=== PATIENT | male | born 1960 | race Caucasian/White ===

== ENCOUNTER 2018-03-09 20:17 | Emergency (ER) | payer OTHER ==
--- NOTE | 2018-03-09 20:24 | EDPHY ---
H & P Stated Complaint: syncope Time Seen by Provider: 03/09/18 20:24 - Personal History Current Tetanus/Diphtheria Vaccine: Yes Current Tetanus Diphtheria and Acellular Pertussis (TDAP): Yes - Medical/Surgical History Hx Asthma: No Hx Chronic Respiratory Disease: No Hx Diabetes: No Hx Cardiac Disease: No Hx Renal Disease: No Hx Cirrhosis: No Hx Alcoholism: No Hx HIV/AIDS: No Hx Splenectomy or Spleen Trauma: No Other PMH: htn, als - Social History Smoking Status: Never smoked Constitutional: Initial Vital Signs Temperature (C) 36.9 C 03/09/18 20:20 Heart Rate 91 03/09/18 20:20 Respiratory Rate 18 03/09/18 20:20 Blood Pressure 102/70 03/09/18 20:20 O2 Sat (%) 94 03/09/18 20:20 O2 Delivery Mode Room Air Allergies/Adverse Reactions: Sulfa (Sulfonamide Antibiotics) Allergy (Verified 03/09/18 20:20) Home Medications: Medication Instructions Recorded Losartan Potassium 03/09/18 Medical Decision Making ED Course/Re-evaluation: CHIEF COMPLAINT: Syncope HISTORY OF PRESENT ILLNESS: The patient is a 57 y/o male with a history of ALS and hypertension arriving via EMS after a syncopal episode today. REVIEW OF SYSTEMS: A comprehensive 10 system review of systems is otherwise negative aside from elements mentioned in the history of present illness and medical decision making. PHYSICAL EXAM: HR, BP, O2 Sat, RR. Temp noted General Appearance: Alert, well hydrated, appropriate, and non-toxic appearing. Head: Atraumatic without scalp tenderness or obvious injury Eyes: Pupils equal, round, reactive to light and accommodation, EOMI, no trauma , no injection. Ears: Clear bilaterally, no perforation, normal landmarks Nose: Atraumatic, no rhinorrhea, clear. Throat: There is no erythema or exudates, no lesions, normal tonsils, mucus membranes moist. Neck: Supple, 2+ carotid upstroke, nontender, no lymphadenopathy. Respiratory: No retractions, no distress, no wheezes, and no accessory muscle use. Lungs are clear to auscultation bilaterally. Cardiovascular: Regular rate and rhythm, no murmurs, rubs, or gallops. Bilateral carotid, radial, dorsalis pedis, and posterior tibial pulses intact. Good capillary refill all extremities. Gastrointestinal: Abdomen is soft, nontender, non-distended, no masses, no rebound, no guarding, no peritoneal signs. Musculoskeletal: Normal active ROM of all extremities, atraumatic. Neurological: Alert, appropriate, and interactive. The patient has normal DTRs and non-focal cranial nerves, motor, sensory, and cerebellar exam. Skin: No rashes, good turgor, no nodules on palpation. Past medical history: Hypertension, ALS Past surgical history: Denies Family history: Denies Social history: Lives in [place] DIAGNOSTICS/PROCEDURES/CRITICAL CARE TIME: DIFFERENTIAL DIAGNOSIS: The differential diagnosis for the patient's syncope included but was not limited to vasovagal syncope, arrhythmia, dehydration, cardiogenic causes, neurogenic causes, and blood loss. MEDICAL DECISION MAKING: Departure - Departure Referrals: Patient,NotPresent [Primary Care Provider] - As per Instructions Report Scribed for: Luis Antonio Brock Report Scribed by: Ludivina Taylor Date of Report: 03/09/18 Time of Report: 20:28
--- NOTE | 2018-03-09 20:28 | EDPHY ---
HPI/HX/ROS/PE/MDM Narrative: CHIEF COMPLAINT: Syncopal episode HPI: The patient is a 57 y/o male with a history of recently-diagnosed ALS arriving with his via EMS after a syncopal episode while at dinner tonight. He and his flew in from [place] yesterday for vacation. His notes he developed cold symptoms two days ago before traveling here. While at dinner tonight he felt lightheaded "like my blood pressure was dropping and I needed to put my head down and I it came on faster than I expected." He then developed associated sensation of "stomach burning" then briefly lost consciousness. No seizure activity or subsequent confusion or incontinence. He did not suffer any trauma during this event. He vomited once and he currently feels fatigued. He denies chest pain or dyspnea at any point. His notes he had a Radicava infusion through his port last night. REVIEW OF SYSTEMS: A comprehensive 10 system review of systems is otherwise negative aside from elements mentioned in the history of present illness. PMH: ALS, port placed 2016. SOCIAL HISTORY: Visiting from [place], flew in yesterday. at bedside. 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 PHYSICAL EXAM: General:Patient is alert, in no acute distress. Pale. ENT:Eyes are normal to inspection. ENT inspection normal. Neck: Normal inspection. Full range of motion. Respiratory:No respiratory distress. Breath sounds normal bilaterally. Cardiovascular: Regular rate and rhythm. Strong peripheral pulses. Normal cap refill. Abdomen:The abdomen is nontender to palpation. There are no peritoneal signs. Back: Normal to inspection. No tenderness to palpation. Skin: Pale. No rash. Warm and dry. Extremities: Normal appearance. Full range of motion. Neuro: Oriented x3. Normal motor function. Normal sensory function. (Gab Hobson) ED Course: This is a 57 y/o male with ALS who is visiting from [place] who presents after a syncopal episode while out at dinner tonight. He is pale and fatigued- appearing, but otherwise has an unremarkable exam. Plan for IV, labs, EKG. 1L IV NS ordered. The 12 lead EKG was interpreted by myself. Sinus mechanism. See hard copy and/ or "tracemaster" electronic copy for interpretation. Patient care signed out to Dr. Brock at shift change pending labs and improvement in symptoms. (Gab Hobson) 2100: I assumed care of this patient from Dr. Hobson at shift change. 2204: Reassessed patient and discussed laboratory and imaging findings. His symptoms are consistent with dehydration and near-syncope. Return precautions provided; patient is comfortable with this plan. (Luis Antonio Brock) - Data Points Imaging Results: Imaging Impressions Chest X-Ray 03/09/18 20:33 Impression: 1. Mild prominent interstitial markings suspected at the lung bases. Consider interstitial infiltrate or interstitial dependent edema. Laboratory Results: Laboratory Results 03/09/18 20:15 03/09/18 20:15 03/09/18 03/09/18 03/09/18 20:29 20:15 20:15 WBC 12.25 10^3/uL H 10^3/uL (3.80-9.50) RBC 4.45 10^6/uL 10^6/uL (4.40-6.38) Hgb 14.4 g/dL g/dL (13.7-17.5) Hct 41.2 % % (40.0-51.0) MCV 92.6 fL fL (81.5-99.8) MCH 32.4 pg pg (27.9-34.1) MCHC 35.0 g/dL g/dL (32.4-36.7) RDW 12.1 % % (11.5-15.2) Plt Count 290 10^3/uL 10^3/uL (150-400) MPV 9.6 fL fL (8.7-11.7) Neut % (Auto) 55.5 % % (39.3-74.2) Lymph % (Auto) 30.9 % % (15.0-45.0) [place] % (Auto) 10.0 % % (4.5-13.0) Eos % (Auto) 2.7 % % (0.6-7.6) Baso % (Auto) 0.4 % % (0.3-1.7) Nucleat RBC Rel Count 0.0 % % (0.0-0.2) Absolute Neuts (auto) 6.80 10^3/uL H 10^3/uL (1.70-6.50) Absolute Lymphs (auto) 3.79 10^3/uL H 10^3/uL (1.00-3.00) Absolute Monos (auto) 1.22 10^3/uL H 10^3/uL (0.30-0.80) Absolute Eos (auto) 0.33 10^3/uL 10^3/uL (0.03-0.40) Absolute Basos (auto) 0.05 10^3/uL 10^3/uL (0.02-0.10) Absolute Nucleated RBC 0.00 10^3/uL 10^3/uL (0-0.01) Immature Gran % 0.5 % % (0.0-1.1) Immature Gran # 0.06 10^3/uL 10^3/uL (0.00-0.10) Sodium 139 mEq/L mEq/L (135-145) Potassium 4.1 mEq/L mEq/L (3.3-5.0) Chloride 100 mEq/L mEq/L (97-110) Carbon Dioxide 24 mEq/l mEq/l (22-31) Anion Gap 15 mEq/L mEq/L (8-16) BUN 23 mg/dL mg/dL (7-23) Creatinine 0.9 mg/dL mg/dL (0.7-1.3) Estimated GFR > 60 Glucose 129 mg/dL H mg/dL (70-100) Calcium 9.8 mg/dL mg/dL (8.5-10.4) POC Troponin I 0.00 ng/mL ng/mL (0.00-0.08) Medications Given: Discontinued Medications Sodium Chloride (Ns) 1,000 mls @ 0 mls/hr IV ONCE ONE PRN Reason: Wide Open Stop: 03/09/18 20:31 Last Admin: 03/09/18 20:31 Dose: 1,000 mls Sodium Chloride (Ns) 1,000 mls @ 0 mls/hr IV EDNOW ONE; Wide Open PRN Reason: Protocol Stop: 03/09/18 20:34 Last Admin: 03/09/18 20:35 Dose: Not Given Point of Care Test Results: Chemistry 03/09/18 20:29 POC Troponin I 0.00 ng/mL ng/mL (0.00-0.08) General Time Seen by Provider: 03/09/18 20:17 Initial Vital Signs: Initial Vital Signs Temperature (C) 36.9 C 03/09/18 20:20 Heart Rate 91 03/09/18 20:20 Respiratory Rate 18 03/09/18 20:20 Blood Pressure 102/70 03/09/18 20:20 O2 Sat (%) 94 03/09/18 20:20 O2 Delivery Mode Room Air Allergies/Adverse Reactions: Sulfa (Sulfonamide Antibiotics) Allergy (Verified 03/09/18 20:20) Home Medications: Medication Instructions Recorded Losartan Potassium 03/09/18 Departure - Departure Disposition: Home, Routine, Self-Care Clinical Impression: Dehydration Syncope Qualifiers: Syncope type: unspecified Qualified Code(s): R55 - Syncope and collapse Condition: Good Instructions: Dehydration (ED), Syncope (DC), Near Syncope (ED) Additional Instructions: 1. Follow-up with your primary doctor within 72 hours. 2. Return to the Emergency Department for fever, chest pain, shortness of breath , increasing pain or other worsening of condition. Referrals: [facility],. [Clinic] - As per Instructions Report Scribed for: Gab Hobson Report Scribed by: Ana Leger Date of Report: 03/09/18 Time of Report: 20:28 Physician Review and Approval Statement: Portions of this note were transcribed by an ED scribe. I personally performed the history, physical exam, and medical decision making; and confirm the accuracy of the information in the transcribed note.
[2018-03-09] MEDS ORDERED: NS 1,000 ML IV ONE ×2 (20:30→20:33)
[2018-03-09 20:39] LABS: PLATELET COUNT 290 10^3/uL (150-400)
[2018-03-09 22:08] VITALS: BP 120/85
--- NOTE | 2018-03-14 21:09 | CPEKG ---
Test Reason : OPEN Blood Pressure : / mmHG Vent. Rate : 085 BPM Atrial Rate : 086 BPM P-R Int : 153 ms QRS Dur : 102 ms QT Int : 388 ms P-R-T Axes : 064 064 042 degrees QTc Int : 462 ms Sinus rhythm Confirmed by Gab Hobson ([id number]) on 03/14/2018 9:08:35 PM Referred By: Confirmed By:Gab Hobson
== END 2018-03-09 22:17 | disposition home or self-care (01) ==
DX: R55 Syncope and collapse (principal); E86.9 Volume depletion, unspecified
CPT/HCPCS: 84484-PO